=== PATIENT | female | born 1950 | race African-American/Black ===

== ENCOUNTER 2020-05-07 21:39 | Inpatient (IN) | payer MEDICARE, MEDICAID ==
[~2020-05-07] VITALS: Ht 157.5 cm; Wt 62.6 kg
[2020-05-07] MEDS ORDERED: SODIUM CHLORIDE 0.9% 1,000 ML IV ONE (22:37)
[2020-05-07] MEDS ORDERED: NALOXONE HCL 0.4 MG/ML 1ML VIAL IV PRN (22:45)
[2020-05-07] MEDS ORDERED: ACTIVATED CHARCOAL 50 G/240 ML TUBE PO ONE (22:45)
[2020-05-07 23:13] LABS: BASOPHILS % 1.3 % (0.0-2.0); EOSINOPHILS % 1.8 % (0.0-5.0); HEMOGLOBIN. 11.3 g/dL (12.0-16.0); LYMPHOCYTES % 22.1 % (20.0-50.0); MEAN CORPUSCULAR HEMOGLOBIN 34.5 pg (28.0-32.0); MEAN CORPUSCULAR VOLUME 100.7 fL (81.0-99.0); MEAN PLATELET VOLUME 9.1 fl (7.4-10.4); MONOCYTES % 8.9 % (2.0-8.0); NEUTROPHILS % 65.9 % (40.0-76.0); PLATELET 277 x1000/uL (130-400); RED BLOOD CELL COUNT 3.27 mill/uL (4.2-5.4); RED CELL DISTRIBUTION WIDTH 15.3 % (11.6-14.6)
[2020-05-07 23:22] LABS: CHLORIDE 107 mEq/L (98-107)
[2020-05-07 23:27] LABS: ETHANOL BLOOD < 10 mg/dL
[2020-05-07 23:42] LABS: CREATINE KINASE 1108 IU/L (26-192)
[2020-05-07 23:44] LABS: CLARITY URINE CLEAR (CLEAR); COLOR URINE YELLOW (YELLOW); KETONES URINE NEGATIVE (NEGATIVE); LEUKOCYTE ESTERASE URINE NEGATIVE (NEGATIVE); NITRITE URINE NEGATIVE (NEGATIVE); OCCULT BLOOD URINE NEGATIVE (NEGATIVE); PROTEIN URINE NEGATIVE (NEGATIVE); SPECIFIC GRAVITY URINE 1.021 (1.005-1.030); UROBILINOGEN URINE 0.2 E.U./dL (0.2-1.0)
[2020-05-08 00:08] LABS: *AMPHETAMINES SCREEN URINE NEGATIVE (NEGATIVE); *BARBITURATES SCREEN URINE NEGATIVE (NEGATIVE)
[2020-05-08 00:09] LABS: *BENZODIAZEPINES SCREEN URINE PRESUMTIVE POSITIVE (NEGATIVE); *COCAINE SCREEN URINE NEGATIVE (NEGATIVE); CANNABINOID URINE SCREEN NEGATIVE (NEGATIVE); METHADONE URINE SCREEN NEGATIVE (NEGATIVE); OPIATES URINE SCREEN PRESUMTIVE POSITIVE (NEGATIVE); PHENCYCLIDINE URINE SCREEN NEGATIVE (NEGATIVE)
[2020-05-08] MEDS ORDERED: SODIUM CHLORIDE 0.9% 1000ML BAG (SEPSIS BOLUS) IV NR (00:15)
[2020-05-08] MEDS ORDERED: DIPHENHYDRAMINE 50MG/ML VIAL IV PRN (08:30)
[2020-05-08] MEDS ORDERED: CLON1TAB MT (10:29)
[2020-05-08] MEDS ORDERED: HYDR-3281 PO (10:29)
[2020-05-08] MEDS ORDERED: PREG75CA PO (10:29)
[2020-05-08] MEDS ORDERED: CARI250T MT (10:29)
[2020-05-08] MEDS ORDERED: RISP05 MT (10:29)
[2020-05-08 10:53] VITALS: BP 103/66
[2020-05-08] MEDS ORDERED: TRAMADOL 50MG TABLET PO PRN (11:15)
[2020-05-08] MEDS: KETOROLAC 30MG/ML VIAL IV PRN ×2 (11:30→17:32)
[2020-05-08 12:00] VITALS: BP 103/66
[2020-05-08] MEDS ORDERED: DIPHENHYDRAMINE 25MG CAPSULE PO PRN (14:00)
[2020-05-08 16:00] VITALS: BP 113/66
[2020-05-08 17:01] VITALS: BP 113/66
[2020-05-08 17:32] VITALS: BP 113/66
== END 2020-05-08 17:55 | disposition home or self-care (01) | DRG 918 ==
LOC: ER 21:39 → 8WST 05-08 01:15 → ENRESERV 05-08 07:47
PROVIDERS: ADMIT Internal Medicine; ATTEND Internal Medicine
DX: T42.8X1A Poisoning by antiparkinsonism drugs and other central muscle-tone depressants, accidental (unintentional), initial encounter (principal); M62.82 Rhabdomyolysis; M62.838 Other muscle spasm; F99 Mental disorder, not otherwise specified; D64.9 Anemia, unspecified; Z88.1 Allergy status to other antibiotic agents; Z88.0 Allergy status to penicillin; Z88.8 Allergy status to other drugs, medicaments and biological substances; Y92.89 Other specified places as the place of occurrence of the external cause; Z79.899 Other long term (current) drug therapy
CPT/HCPCS: 36415; 80053; 80305; 80307; 80320; 80329; 81003; 82140; 82550; 83605; 84443; 84484; 85025; 93005; 99291; J1200; J1885; J2310; J7030; G0480